=== PATIENT | male | born 2000 | race Caucasian/White ===

== ENCOUNTER 2021-04-06 16:03 | Inpatient (IN) | payer OTHER ==
[~2021-04-06] VITALS: Ht 177.8 cm; Wt 77.3 kg
[2021-04-06 17:14] LABS: HEMATOCRIT 45.2 % (42.0-52.0); HEMOGLOBIN 15.2 g/dl (13.5-17.5); MEAN CORPUSCULAR HEMOGLOBIN 28.8 pg (27.0-33.0); MEAN CORPUSCULAR HGB CONC 33.6 g/dl (32.0-36.5); MEAN CORPUSCULAR VOLUME 85.6 fl (80.0-96.0); PLATELET COUNT, AUTOMATED 298 10^3/uL (150-450); RED BLOOD COUNT 5.28 10^6/uL (4.30-6.10); WHITE BLOOD COUNT 8.2 10^3/uL (4.0-10.0)
[2021-04-06 17:32] LABS: AMPHETAMINES LEVEL URINE NEGATIVE (NEGATIVE); BARBITURATES URINE NEGATIVE (NEGATIVE); BENZODIAZEPINES URINE NEGATIVE (NEGATIVE); CANNABINOIDS URINE NEGATIVE (NEGATIVE); COCAINE METABOLITE URINE NEGATIVE (NEGATIVE); METHADONE URINE NEGATIVE (NEGATIVE); OPIATES URINE NEGATIVE (NEGATIVE); PHENCYCLIDINE URINE NEGATIVE (NEGATIVE)
[2021-04-06 17:43] LABS: ACETAMINOPHEN LEVEL < 2.0 UG/ML (10.0-30.0); ALBUMIN 4.6 GM/DL (3.2-5.2); ALT/SGPT 27 U/L (12-78); BILIRUBIN,DIRECT 0.3 MG/DL (0.0-0.2); BILIRUBIN,TOTAL 2.1 MG/DL (0.2-1.0); BLOOD UREA NITROGEN 20 MG/DL (7-18); CARBON DIOXIDE LEVEL 31 MEQ/L (21-32); CHLORIDE LEVEL 102 MEQ/L (98-107); CREATININE FOR GFR 0.98 MG/DL (0.70-1.30); ETHYL ALCOHOL (ETHANOL) < 0.003 % (0.000-0.010); GLUCOSE, FASTING 86 MG/DL (70-100); POTASSIUM SERUM 4.4 MEQ/L (3.5-5.1); SALICYLATE LEVEL < 1.7 MG/DL (5.0-30.0); SODIUM LEVEL 139 MEQ/L (136-145); TOTAL PROTEIN 7.9 GM/DL (6.4-8.2)
[2021-04-06 17:57] LABS: RSV AMPLIFICATION NEGATIVE (NEGATIVE)
[2021-04-06] MEDS ORDERED: HOME MED LIST COMPLETE! XX SCH (18:35)
[2021-04-07] MEDS ORDERED: traZODone 50 MG TAB PO PRN (01:05)
[2021-04-07] MEDS ORDERED: MAALOX 30 ML SUSP *UDC PO PRN (01:05)
[2021-04-07] MEDS ORDERED: MOM 30ML SUSPENSION UDC PO PRN (01:05)
[2021-04-07] MEDS ORDERED: ACETAMINOPHEN TAB 650MG DOSE (2X325MG) PO PRN (01:05)
[2021-04-07 04:32] VITALS: BP 121/65
--- NOTE | 2021-04-07 12:18 | MHHPE ---
[facility] HISTORY AND PHYSICAL DATE OF ADMISSION: 04/07/2021 IDENDIFYING DATA: This is a 20-year-old male, , living with his in [place]. 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 HISTORY OF PRESENT ILLNESS: Patient reports he has been depressed for a long time; however, recently, that has increased and he had suicidal thoughts with a plan to cut his wrists. He told his production zone leader and he was brought to the hospital. Complains of low appetite, decreased sleep, hopelessness and helplessness and some suicidal thoughts. Denies any history of manic episodes or anxiety. Denies any history of psychosis. This is his first psychiatric hospitalization. His stressors are mainly marriage problems as well as family problems. PAST PSYCHIATRIC HISTORY: He was admitted once when he was 17 years old because of anger problems. He ran away from home from his foster parents. SUICIDAL HISTORY: Patient attempted suicide by cutting his wrists when he was 14. MEDICATIONS: Patient was on various medications like Paxil, Seroquel, Adderall. Reports the Seroquel has helped him the most. MEDICAL HISTORY: Denies medical problems. FAMILY HISTORY: Mother and sister with depression. PERSONAL HISTORY: He was born and raised in [place], mostly by his grandparents. He was in a foster home as well. He completed 11th grade and dropped out. He finished his GED. He has been in the for the last 1.5 months. MENTAL STATUS EXAMINATION: He is a well-built male of average height. Cooperative. Makes good eye contact. Psychomotor activity is normal. Mood is mildly depressed with constricted affect. Speech: Rate, rhythm and volume are good. Thought process: Linear and goal-directed. Thought content: Patient has some suicidal thoughts, which are vague. No plans. Denies any delusions. Denies any auditory or visual hallucinations. Memory: Remote, immediate and recent is good. He is oriented to time, place and person. His concentration and attention is good. VITAL SIGNS: Temperature 97.1 pulse 91, respiratory rate 20, blood pressure 121/65, pulse oximetry 98. REVIEW OF SYSTEMS: CONSTITUTIONAL: Negative for epistaxis, headache, hearing loss. RESPIRATORY: No cough or shortness of breath. CARDIOVASCULAR: Negative for chest pain or dyspnea on exertion. GASTROINTESTINAL: No abdominal pain. No change in bowel habits. GENITOURIARY: No dysuria. No trouble voiding. MUSCULOSKELETAL: No joint pain or swelling. NEUROLGOCIAL: No gait disturbances. No numbness. No tingling. DIAGNOSES: 1. Major depressive disorder, recurrent. 2. Attention deficit hyperactivity disorder (ADHD) by history. PLAN: 1. Admit to inpatient mental health unit (IMHU). 2. Patient will be followed up by the roads supervisor for medical needs. 3. Patient will be seen by rn social work and case management. 4. Patient will be placed on suicide precautions, 15 minute checks. 5. Patient will participate in activities, individual, group and milieu therapies. 6. I will place him on Seroquel 25 mg at night, titrate the dose. ESTIMATED LENGTH OF STAY: 4-5 days. TIME SPENT: 45 minutes.
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
[2021-04-07 19:13] VITALS: BP 140/71
[2021-04-08 06:23] VITALS: BP 116/62
--- NOTE | 2021-04-08 11:48 | MHIPNPDOC ---
[facility] Progress Note Progress Note DATE OF SERVICE: 04/08/21 HISTORY:: This is a 20-year-old male, , living with his in [place]. 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 Patient reports he has been depressed for a long time; however, recently, that has increased and he had suicidal thoughts with a plan to cut his wrists. He told his band leader and he was brought to the hospital. Complains of low appetite, decreased sleep, hopelessness and helplessness and some suicidal thoughts. Denies any history of manic episodes or anxiety. Denies any history of psychosis. This is his first psychiatric hospitalization. His stressors are mainly marriage problems as well as family problems. He was admitted once when he was 17 years old because of anger problems. He ran away from home from his foster parents. Patient attempted suicide by cutting his wrists when he was 14. Interval report: He reports that his relationship with his is improving, but with his family because his sister consistently asked for money, he has some disagreement with her. MENTAL STATUS EXAMINATION: Patient is a 20-year old male, who is well-built, of average height Speech: rate rhythm and volume are good Language skills are good Thought processes including: Linear goal-directed. Thought content: No evidence of delusions, denied any suicidal homicidal ideas Judgment: Fair. Insight: Fair Orientation: Time place and person Recent and remote memory: Good Attention span and concentration: Good Language: Good Fund of knowledge: . Mood: Euthymic, affect mood congruent DIAGNOSES: 1. Major depressive disorder ASSESSMENT: Patient is tolerating medicine well, denies any side effects MANAGEMENT PLAN: Continue current medications, plan is discharge, estimated length of stay 2 to 3 days TIME SPENT: 25 minutes. Vital Signs Vital Signs Date Time Temp Pulse Resp B/P (MAP) Pulse Ox O2 Delivery O2 Flow Rate FiO2 04/08/21 06:23 97.8 72 16 116/62 (80) 100 Room Air Current Medications Current Medications Medications (Trade) Dose Ordered Sig/Octavia Route PRN Reason Start Time Stop Time Status Last Admin Dose Admin Acetaminophen (Tylenol Tab) 650 mg Q6HP PRN PO HEADACHE or MILD DISCOMFORT 04/07/21 01:05 Al Hydrox/Mg Hydrox/Simethicone (Mylanta) 30 ml Q4HP PRN PO HEARTBURN/INDIGESTION 04/07/21 01:05 Home Med (Home Med List Complete!) ASDIRECTED XX 04/06/21 18:35 04/06/21 18:35 DC Magnesium Hydroxide (Milk Of Magnesia) 30 ml DAILYPRN PRN PO CONSTIPATION 04/07/21 01:05 Quetiapine Fumarate (SEROquel) 25 mg QHS PO 04/08/21 21:00 UNV Trazodone HCl (Desyrel) 50 mg QHSP PRN PO INSOMNIA 04/07/21 01:05 04/07/21 21:12 Allergies Coded Allergies: No Known Allergies (Verified Allergy, Unknown, 04/06/21) GABRIELA HERNANDEZ MD Apr 08, 2021 11:48
[2021-04-08] MEDS ORDERED: QUEtiapine FUMARATE 25 MG TAB PO SCH (21:00)
[2021-04-08 22:00] VITALS: BP 124/68
[2021-04-08] MEDS: MIRTAZAPINE 15 MG TAB PO SCH (23:25)
[2021-04-09 06:45] VITALS: BP 167/73
[2021-04-09] MEDS: buPROPion **XL** TABLET 150MG (WELLBUTRIN XL) PO SCH (14:03)
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
[2021-04-09 16:48] VITALS: BP 138/63
[2021-04-09] MEDS: MIRTAZAPINE 15 MG TAB PO SCH (22:08)
[2021-04-10 06:44] VITALS: BP 144/63
[2021-04-10] MEDS ORDERED: MIRT-62 PO (09:15)
[2021-04-10] MEDS ORDERED: BUPR150T12 PO (09:15)
[2021-04-10] MEDS: buPROPion **XL** TABLET 150MG (WELLBUTRIN XL) PO SCH (09:17)
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
== END 2021-04-10 14:00 | disposition home or self-care (01) | DRG 885 ==
LOC: M ED 16:03 → M ED INP 04-07 01:21 → M PSY 04-07 03:32
PROVIDERS: ADMIT Psychiatry & Neurology Psychiatry; ATTEND Student in an Organized Health Care Education/Training Program
DX: F33.1 Major depressive disorder, recurrent, moderate (principal); R45.851 Suicidal ideations; Z91.51 Personal history of suicidal behavior; Z20.822 Contact with and (suspected) exposure to COVID-19; Z63.9 Problem related to primary support group, unspecified; F60.89 Other specific personality disorders

== ENCOUNTER 2021-05-31 10:27 | Emergency (ER) | payer OTHER ==
[~2021-05-31] VITALS: Ht 177.8 cm; Wt 75.3 kg
[~2021-05-31 10:27] MED LIST: BUPR150T12 PO; MIRT-62 PO
[2021-05-31 10:28] VITALS: BP 140/82
[2021-05-31 11:37] LABS: BASO # 0.1 10^3/uL (0.0-0.2); BASO % 0.6 % (0.0-1.0); EOS # 0.1 10^3/uL (0.0-0.5); EOS % 0.4 % (0.0-3.0); HEMATOCRIT 42.1 % (42.0-52.0); HEMOGLOBIN 14.1 g/dl (13.5-17.5); LYMPH # 1.8 10^3/uL (1.5-5.0); LYMPH % 11.3 % (24.0-44.0); MEAN CORPUSCULAR HEMOGLOBIN 29.2 pg (27.0-33.0); MEAN CORPUSCULAR HGB CONC 33.5 g/dl (32.0-36.5); MEAN CORPUSCULAR VOLUME 87.2 fl (80.0-96.0); MONO # 0.7 10^3/uL (0.0-0.8); MONO % 4.6 % (2.0-8.0); NEUTROPHILS # 13.1 10^3/uL (1.5-8.5); NEUTROPHILS % 82.4 % (36.0-66.0); PLATELET COUNT, AUTOMATED 282 10^3/uL (150-450); RED BLOOD COUNT 4.83 10^6/uL (4.30-6.10); WHITE BLOOD COUNT 15.9 10^3/uL (4.0-10.0)
[2021-05-31 12:08] LABS: ALBUMIN 4.5 GM/DL (3.2-5.2); ALT/SGPT 24 U/L (12-78); BILIRUBIN,DIRECT 0.2 MG/DL (0.0-0.2); BILIRUBIN,TOTAL 0.8 MG/DL (0.2-1.0); BLOOD UREA NITROGEN 15 MG/DL (7-18); CALCIUM LEVEL 9.7 MG/DL (8.5-10.1); CARBON DIOXIDE LEVEL 31 MEQ/L (21-32); CHLORIDE LEVEL 105 MEQ/L (98-107); CREATININE FOR GFR 0.86 MG/DL (0.70-1.30); GLUCOSE, FASTING 104 MG/DL (70-100); LIPASE 96 U/L (73-393); POTASSIUM SERUM 4.4 MEQ/L (3.5-5.1); SODIUM LEVEL 140 MEQ/L (136-145); TOTAL PROTEIN 7.9 GM/DL (6.4-8.2)
== END 2021-05-31 15:03 | disposition left against medical advice (07) ==
LOC: M ED 10:27
DX: Z53.29 Procedure and treatment not carried out because of patient's decision for other reasons (principal)

== ENCOUNTER 2022-11-02 09:41 | Emergency (ER) | payer OTHER ==
[~2022-11-02] VITALS: Ht 177.8 cm; Wt 92.1 kg
[2022-11-02] MEDS ORDERED: ONDANSETRON 4MG ORAL DISINTEGRATING TAB PO ONE (11:40)
[2022-11-02] MEDS ORDERED: IBUPROFEN 800 MG TAB PO ONE (11:40)
[2022-11-02 11:44] VITALS: BP 145/65
[2022-11-02] MEDS ORDERED: PRED20TA PO (12:14)
[2022-11-02] MEDS ORDERED: ONDA4TAB6 PO (12:14)
== END 2022-11-02 12:19 | disposition home or self-care (01) ==
LOC: M ED 09:41
DX: J02.9 Acute pharyngitis, unspecified (principal); R05.9 Cough, unspecified

== ENCOUNTER 2023-02-04 06:21 | Emergency (ER) | payer OTHER ==
[~2023-02-04] VITALS: Ht 177.8 cm; Wt 90.9 kg
[~2023-02-04 06:21] MED LIST changes: +ONDA4TAB6 PO; +PRED20TA PO
[2023-02-04 06:22] VITALS: BP 151/82; TEMP 97.5; O2SAT 98
== END 2023-02-04 10:50 | disposition left against medical advice (07) ==
LOC: M ED 10:50
DX: Z53.21 Procedure and treatment not carried out due to patient leaving prior to being seen by health care provider (principal)